=== PATIENT | female | born 1980 | race Caucasian/White ===

== ENCOUNTER 2016-04-02 18:24 | Inpatient (IN) | payer OTHER ==
--- NOTE | ~2016-04-02 | US140 ---
[facility] A Service of [facility] RADIOLOGY TEXT RESULTS PATIENT: KARLA JONES LOCATION: CEDOF : 82 UNIT #: [id number] AGE: [address]: Maximilian Momin MD SEX: F ORDER DR: [id number] [facility] [address] [place], [place] [address] [id number] I MR#: [id number] Acc #: [id number] NAME: KARLA JONES. : 1980 SEX: F STUDY DATE/TIME: 04/02/2016 19:06 UNIT: CED ROOM: [id number] STUDY DESCRIPTION: US UE Veins Unilat or Ltd Stdy Attending Physician: Maxine Valenzuela M.D. Ordering Physician: Demetra Santillan M.D. Primary Care Physician: No Primary Care Physician MEDICAL IMAGING REPORT This report is preliminary unless electronic signature is present EXAM Ultrasound venous upper extremity unilateral or limited. DATE OF EXAM 04/02/2016 HISTORY Right upper extremity numb for a week. History of IV drug abuse, fell asleep after drug abuse, and woke up with no feeling or movement in either arms. Left arm has regained movement. COMMENT Real-time ultrasonography of the right upper extremity venous system performed with 2-D serrano-scale compression imaging, color-flow Doppler imaging and waveform analysis. FINDINGS Normal flow and compressibility is seen in the right upper extremity venous system including the downstream internal jugular vein, subclavian, axillary vein, deep and superficial brachial veins, proximal and distal cephalic veins and proximal and distal basilic veins. IMPRESSION No evidence for acute appearing deep or superficial venous thrombosis, right upper extremity venous system. Dictated by... Antonia Crews M.D. THIS IS AN ELECTRONICALLY VERIFIED REPORT Antonia Crews M.D. at 04/03/2016 10:23 AM ROBIN/jclarissa [facility] A Service [facility] RADIOLOGY TEXT RESULTS PATIENT: KARLA JONES LOCATION: CED : 82 UNIT #: [id number] AGE: [address]: Maximilian Momin MD SEX: F ORDER DR: TD: 04/03/2016 00:34 JOB #: [id number] MEDICAL IMAGING REPORT COPY
--- NOTE | ~2016-04-02 | CT16 ---
[facility] A Service of [facility] & [facility] RADIOLOGY TEXT RESULTS PATIENT: KARLA JONES LOCATION: CEDOF [id number] : 82 UNIT #: [id number] AGE: [address]: Maxine Valenzuela MD SEX: F ORDER DR: [id number] [facility] [address] [facility] [place], [place] [address] [id number] I MR#: [id number] Acc #: [id number] NAME: KARLA JONES. : 1980 SEX: F STUDY DATE/TIME: 04/02/2016 21:38 UNIT: CED ROOM: [id number] STUDY DESCRIPTION: CT Angio Chest for PE Attending Physician: Maxine Valenzuela M.D. Ordering Physician: Demetra Santillan M.D. Primary Care Physician: Primary Care Physician No MEDICAL IMAGING REPORT This report is preliminary unless electronic signature is present EXAM Chest CTA, 04/02 at 2138 hours INDICATIONS Chest pain since Wednesday of this week. Pain currently 5/10. TECHNIQUE Axial images were obtained through the chest following IV contrast administration. 3-D reformats were obtained. No comparison chest CT. This CT exam was performed with one or more of the following radiation dose reduction techniques: Automatic exposure control, adjustment of mA and/or kV according to patient size, and iterative reconstruction. FINDINGS There is no pulmonary embolism or aortic dissection. No pleural or pericardial effusion. There is no adenopathy. There is some dependent atelectasis in the left lower lobe. There is some very mild ground-glass infiltrates in the right upper lobe and in the left lower lobe suggesting mild pneumonia/pneumonitis. The lungs are otherwise clear. There are old right side seventh and eighth rib fractures. There is dextroscoliosis in the lower thoracic spine. IMPRESSION 1. No pulmonary embolism or aortic dissection. 2. Mild ground-glass infiltrates in the right upper lobe and, to a lesser degree, in the left lower lobe suggesting mild pneumonia/pneumonitis. 3. Scoliosis with old right side rib fractures. Dictated by... Eugene Chaudhari Jr., M.D. [facility] A Service of [facility] & [facility] RADIOLOGY TEXT RESULTS PATIENT: KARLA JONES LOCATION: [place] [address] : 82 UNIT #: [id number] AGE: [address]: Maxine Valenzuela MD SEX: F ORDER DR: THIS IS AN ELECTRONICALLY VERIFIED REPORT Eugene Chaudhari Jr., M.D. at 04/03/2016 6:04 AM AURELIO/nilam TD: 04/03/2016 04:13 JOB #: [id number] MEDICAL IMAGING REPORT COPY
--- NOTE | ~2016-04-02 | CR91 ---
[facility] A Service [facility] RADIOLOGY TEXT RESULTS PATIENT: KARLA JONES LOCATION: [facility] : 82 UNIT #: [id number] AGE: [address]: Maximilian Momin MD SEX: F ORDER DR: [id number] [place] [id number] [facility]. [place], [place] [address] [id number] I MR#: [id number] Acc #: [id number] NAME: KARLA JONES. : 1980 SEX: F STUDY DATE/TIME: 04/02/2016 22:45 UNIT: [facility] ROOM: [facility] STUDY DESCRIPTION: CR Elbow 2 View Rt Attending Physician: Maxine Valenzuela M.D. Ordering Physician: Natalie Sotelo M.D. Primary Care Physician: Primary Care Physician No MEDICAL IMAGING REPORT This report is preliminary unless electronic signature is present EXAM Right elbow. HISTORY Pain and swelling. Cannot straighten arm since Wednesday. Had an IV infiltrate on Wednesday. COMMENT 3 views of the right elbow reviewed. Positioning is suboptimal for evaluation for fracture. There is IV at the antecubital fossa and there is a large amount of stranding in the subcutaneous fat centered at the elbow level and this is consistent with previously infiltrated IV but please evaluate for any concern now for cellulitis. No osseous abnormality is appreciated. Allowing for positioning no acute fracture or dislocation is suspected. IMPRESSION Extensive subcutaneous fat edema centered at the level of the elbow. This is consistent with infiltration of an IV as indicated in the history but please exclude clinical concern for cellulitis. No osseous abnormality appreciated. There is an IV present currently. Dictated by... Antonia Crews M.D. THIS IS AN ELECTRONICALLY VERIFIED REPORT Antonia Crews M.D. at 04/03/2016 10:25 AM ROBIN/christa TD: 04/03/2016 06:13 JOB #: [id number] MEDICAL IMAGING REPORT [facility] A Service [facility] RADIOLOGY TEXT RESULTS PATIENT: KARLA JONES LOCATION: [facility] [id number] : 82 UNIT #: [id number] AGE: [address]: Maximilian Momin MD SEX: F ORDER DR: COPY
--- NOTE | ~2016-04-02 | CT128 ---
[facility] A Service of [facility] RADIOLOGY TEXT RESULTS PATIENT: KARLA JONES LOCATION: [facility] 556-01 : 82 UNIT #: [id number] AGE: [address]: Maximilian Momin MD SEX: F ORDER DR: [id number] [place] [id number] [facility]. [place], [place] [address] [id number] I MR#: [id number] Acc #: [id number] NAME: KARLA JONES. : 1980 SEX: F STUDY DATE/TIME: 04/03/2016 10:04 UNIT: [facility] ROOM: [facility] STUDY DESCRIPTION: CT Upper Ext Rt W Cont Attending Physician: Maximilian Momin M.D. Ordering Physician: Robbin Choudhury M.D. Primary Care Physician: No Primary Care Physician MEDICAL IMAGING REPORT This report is preliminary unless electronic signature is present EXAM CT right upper extremity with contrast. HISTORY 35-year-old female with right elbow pain, swelling since 03/30/2016. Evaluate for abscess. The history of IV drug abuse. History of radial nerve palsy. TECHNIQUE Axial images were performed through the upper extremity centered about the elbow following IV contrast. Sagittal and coronal reconstructed images reviewed at a workstation. This CT exam was performed with one or more of the following radiation dose reduction techniques: automatic exposure control, adjustment of mA and/or kV according to patient size, and iterative reconstruction. FINDINGS Examination demonstrates minimal skin thickening and diffuse reticulation of the subcutaneous tissues, most prominent within the antecubital region of the elbow, but also extending into the forearm. No discernible abscess identified, though the patient does demonstrate a moderate elbow effusion which does raise the concern for possible septic arthritis. No definite osteolysis identified. If clinically warranted, further evaluation with joint aspiration and fluid analysis may be indicated. The visualized musculature unremarkable. Normal vascular enhancement without evidence of thrombosis. Visualized tendons about the elbow appear normal. The area of confluent edema within the subcutaneous tissues in the antecubital fossa measures up to 4 cm. The area of confluent edema within the subcutaneous tissues predominately extends along the flexor surface of the forearm. [facility] A Service of [facility] RADIOLOGY TEXT RESULTS PATIENT: KARLA JONES LOCATION: [place] [address] : 82 UNIT #: [id number] AGE: [address]: Maximilian Momin MD SEX: F ORDER DR: IMPRESSION 1. Mild soft tissue swelling and edema about the upper extremity centered primarily in the region of the antecubital fossa with some confluent edema within the subcutaneous space, within the antecubital fossa but no discernible abscess or drainable fluid collection within the soft tissues. Again this may reflect cellulitis. 2. Patient does demonstrate a moderate elbow effusion, which in the setting of a questionable infection does raise a concern for septic arthritis. Further evaluation with a joint aspiration and fluid analysis may be warranted. The findings were called and discussed with Dr. Robbin Calabrese. Dictated by... Jez Mendez M.D. THIS IS AN ELECTRONICALLY VERIFIED REPORT Jez Mendez M.D. at 04/05/2016 8:29 PM Noe TD: 04/03/2016 14:10 JOB #: [id number] MEDICAL IMAGING REPORT COPY
--- NOTE | ~2016-04-02 | HP ---
Unit #: [id number] #: [id number] Patient: KARLA JONES [id number] [address] [place], [place] [address] [id number] I MR#: [id number] NAME: KARLA JONES. ROOM: 49754 Age: 35 Sex: F Admission Date: 04/03/2016 : 1980 Attending Physician: Maxine Valenzuela M.D. Primary Care Physician: No Primary Care Physician HISTORY AND PHYSICAL CHIEF COMPLAINT Right arm problem since Wednesday. HISTORY OF PRESENT ILLNESS The patient is a 35-year-old female with past medical history of IV drug use and recent admission for right upper extremity paralysis. She was admitted to [facility] March 25-2016, for right upper extremity paralysis. She was seen in consultation by neurology. It was felt to be questionable positional versus toxic. She was discharged home with a plan for outpatient physical therapy and occupational therapy, which has not yet been set up. The patient states that she had an IV that infiltrated on the day of discharge. She has had persistent swelling. She states that she has actually had more feeling in the upper extremity and has been noticing pain. She thinks that it is maybe related to her being able to actually feel some of her arm. She denies any fever. She has had a cough that has been present since before her previous admission. She states that it is nonproductive. She denies any chest pain. No palpitations. No vomiting. No diarrhea. No urinary symptoms. In the emergency department, temperature was 98.2 and pulse 141. White blood cell count is 18.5. Lactic acid 1.3. Urine tox screen was positive for amphetamines and opiates. Right upper extremity Doppler was negative for DVT. CT of the chest, PE protocol, showed ground-glass infiltrates concerning for possible pneumonia. An elbow x-ray showed findings concerning for possible cellulitis. She was given vancomycin, tobramycin, and Zosyn in the emergency department. She is being admitted to [facility] for evaluation and further treatment. PAST MEDICAL HISTORY 1. Admission to [facility] March 25-2016, for right upper extremity paralysis thought to be positional versus toxic. The plan was for her to have physical therapy as an outpatient. They have not yet seen the patient. 2. History of rhabdomyolysis during that admission as well. 3. Non-ST elevation myocardial infarction. The patient was seen in consultation by cardiology. The plan was medical management. A 2D echo was checked as well. There are no results in [facility]. PAST SURGICAL HISTORY 1. Tubal ligation. 2. C section. SOCIAL HISTORY The patient is currently living with her mother. She is an IV drug user. Unit #: [id number] #: [id number] Patient: KARLA JONES She states that her last use was prior to the last admission. She denies tobacco use. She is currently on home incarceration. FAMILY HISTORY Notable for her mother being on disability. The patient is unable to tell me what medical issues she has. She is in a wheelchair. She denies a family history of diabetes. ALLERGIES No known allergies. MEDICATIONS Home medications per the discharge summary from March 30 include: 1. Neurontin 300 mg t.i.d. 2. Coreg 3.125 mg twice daily. 3. Lipitor 10 mg daily. 4. Aspirin 81 mg daily. 5. Claritin 10 mg daily. 6. Robitussin 600 mg twice daily. REVIEW OF SYSTEMS A 10-point review of systems is negative, except as indicated in the HPI. DIAGNOSTIC STUDIES CARDIOVASCULAR: EKG showed sinus tachycardia with a rate of 106 beats per minute. IMAGING: Right upper extremity Doppler is negative for DVT. CT of the chest, PE protocol, shows no PE. Ground-glass infiltrates are present. Elbow x-ray shows findings concerning for a possible cellulitis versus IV infiltration. LABORATORY: Blood cultures from March 25 were no growth after 5 days x2. Troponin is less than 0.05. INR is 1. Lactic acid 1.3. Complete blood count notable for white blood cell count of 18.5; hemoglobin and hematocrit 11.8 and 36.7, respectively; MCV of 76, and RDW 18.5. BNP is 59. Comprehensive metabolic panel is essentially normal. Total protein is 8.6. CK is 129. Magnesium is 1.8. Urine tox screen is positive for amphetamines and opiates. Urinalysis notable for trace leukocyte esterase, 5-10 white blood cells, 3+ bacteria, and a few squamous cells are present. PHYSICAL EXAMINATION VITAL SIGNS: Temperature is 97.5, pulse 110, respirations 16, blood pressure 131/96, and oxygen saturation is 98% on room air. GENERAL: The patient is a female who is awake, alert, and in no acute distress. HEENT: The head is atraumatic. Mucous membranes are moist. NECK: Supple. Trachea is midline. CARDIOVASCULAR: Regular rate and rhythm. LUNGS: Relatively clear to auscultation bilaterally with no increased work of breathing. ABDOMEN: Soft and nontender with bowel sounds present in all four quadrants. EXTREMITIES: The right upper extremity is diffusely tender to palpation. Unit #: [id number] #: [id number] Patient: KARLA JONES She does have nonpitting edema involving the right upper extremity. She has multiple track anderson as well as wrist drop. She has decreased boiler tender strength involving the right hand. Sensation is subjectively decreased involving the right upper extremity. NEUROLOGIC: The patient is awake and alert. She follows commands. PSYCH: The patient is cooperative. Mood and affect are normal. SKIN: Demonstrates the previously described abnormalities. The right elbow is somewhat warm. It is not particularly erythematous. She does have decreased range of motion secondary to pain and previous history of paralysis present on admission. ASSESSMENT The patient is a 35-year-old female with: 1. Sepsis. 2. Healthcare-associated pneumonia. The patient received vancomycin, Zosyn, and tobramycin in the emergency department. 3. Right upper extremity cellulitis versus possible septic arthritis. 4. Urinary tract infection. 5. History of right upper extremity paralysis. 6. History of non-ST elevation myocardial infarction. 7. IV drug use with last use being earlier this month. Urine tox screen is positive for amphetamines and opiates today. PLAN 1. Admit to intermediate level. 2. Normal saline at 125 mL an hour. 3. Healthy heart diet. 4. Blood cultures x2. 5. Sputum culture and sensitivity. 6. Procalcitonin level. 7. Sepsis protocol with repeat lactic acid level. 8. Vancomycin IV, tobramycin IV, and Zosyn IV pending further workup. 9. Supplemental oxygen. 10. DuoNeb p.r.n. 11. Two-dimensional echo for further evaluation of sepsis in a patient with history of IV drug use. 12. Consult orthopedics regarding possible septic arthritis. 13. Urine culture and sensitivity on urine in the lab. 14. Serial cardiac enzymes. 15. manager fashion and social work consult regarding IV drug use. 16. P.R.N. Tylenol. 17. P.R.N. Zofran. 18. SCDs for DVT prophylaxis. 19. Repeat labs in the morning. 20. Additional workup and consultants based on above. Dictated by Brock Landaverde/albino TD: 04/03/2016 05:07 JOB #: [id number] Unit #: [id number] #: [id number] Patient: KARLA JONES HISTORY AND PHYSICAL X Maxine Valenzuela MD HISTORY AND PHYSICAL
--- NOTE | ~2016-04-02 | MR41 ---
[facility] A Service of [facility] & [facility] RADIOLOGY TEXT RESULTS PATIENT: KARLA JONES LOCATION: [facility] 55- : 82 UNIT #: [id number] AGE: [address]: Ashvin Solis MD SEX: F ORDER DR: [id number] [facility] [address] [facility]. [place], [place] [address] [id number] I MR#: [id number] Acc #: [id number] NAME: KARLA JONES. : 1980 SEX: F STUDY DATE/TIME: 04/05/2016 11:44 UNIT: C5B ROOM: [facility] STUDY DESCRIPTION: MR Elbow WWo Contrast Rt Attending Physician: Maximilian Momin M.D. Ordering Physician: Solomon Lema M.D. Primary Care Physician: Primary Care Physician No MRI CENTER REPORT This report is preliminary unless electronic signature is present. EXAM MRI of the right elbow with and without contrast, 04/05/2016 HISTORY 35-year-old female with right elbow pain and swelling, unable to straighten arm since Wednesday, 6 days ago. History of IV infiltrate. Clinical concern for abscess. Recent joint aspiration was not highly suggestive of a septic joint. Apparent blood aspirated from elbow joint. COMPARISON CT right upper extremity 04/03/2016. FINDINGS Multiplanar multiecho imaging was performed of the right elbow utilizing a high field magnetic dedicated protocol. Sagittal and axial T1 weighted images were performed following IV gadolinium. The study is slightly degraded due to motion artifact but is felt to be diagnostic. Bone structure and alignment appears normal. Elbow alignment appears maintained. There is a moderate elbow effusion with enhancement of the synovium which s a normal expected finding. Given the absence of adjacent marrow edema and significant pericapsular edema, septic arthritis is considered unlikely. Minimal chondromalacia humeral capitellum. No loose body. Generalized soft tissue swelling and edema about the elbow. There is more confluent edema in the anterior elbow in the region of the antecubital fossa with signal abnormality along the medial distal muscle belly of the brachialis muscle and deep to the biceps tendon within the antecubital fossa. This enhances post contrast and may represent a focal area of myositis. This is best seen on the axial post contrast images and measures about 1.2 cm x 2.6 cm in greatest transverse dimensions and is STS. [facility] A Service of [facility] & [facility] RADIOLOGY TEXT RESULTS PATIENT: KARLA JONES LOCATION: [place] [address] : [birth year] UNIT #: [id number] AGE: [address]: Ashvin Solis MD SEX: F ORDER DR: estimated approximately 6 cm in cephalocaudal dimension. This appears rather diffuse along the medial margin and medial portion of the distal brachialis muscle and again, may represent focal myositis. No drainable fluid collection of abscess. The visualized neurovascular structure is unremarkable. IMPRESSION 1. Moderate joint effusion but no ancillary findings to support septic arthritis. This would be in keeping with the patient's findings from aspiration of the joint. 2. Generalized soft tissue swelling and edema about the elbow which shows minimal enhancement post contrast and may reflect cellulitis. 3. Prominent muscle edema and enhancement along the medial margin of the brachialis muscle within the distal upper arm extending into the antecubital fossa. This measures approximately 1.2 cm x 2.6 cm in greatest transverse dimensions and extends over at least a 6 cm length of the distal brachialis muscle. The enhancement post contrast is nonspecific but would suggest some degree of myositis. No drainable fluid collection or abscess demonstrated. Dictated by... Jez Mendez M.D. THIS IS AN ELECTRONICALLY VERIFIED REPORT Jez Mendez M.D. at 04/06/2016 5:02 PM SG/audie TD: 04/05/2016 21:20 JOB #: [id number] MRI CENTER REPORT COPY
--- NOTE | ~2016-04-02 | EKG ---
PATIENT: KARLA JONES UNIT #: [id number] Ventricular Rate: 106 BPM Atrial Rate: 106 BPM P-R Interval: 138 ms QRS Duration: 82 ms Q-T Interval: 348 ms QTC Calculation(Bezet): 462 ms P Almond: 64 degrees Calculated R Almond: 64 degrees Calculated T Almond: 57 degrees Diagnosis Line: Sinus tachycardia Diagnosis Line: Possible Left atrial enlargement Diagnosis Line: Nonspecific ST abnormality Diagnosis Line: Abnormal ECG Diagnosis Line: When compared with ECG of 26-MAR-2016 07:17, Diagnosis Line: Vent. rate has increased BY 43 BPM Diagnosis Line: Confirmed by EFRAIN SPICER MD ([id number]) on 04/03/2016 Diagnosis Line: 5:19:17 PM INTERPRETING MD: DANNIELLE MORRISON
--- NOTE | ~2016-04-02 | OR ---
Unit #: [id number] #: [id number] Patient: KARLA READ [id number] [address] [place], [place] [address] [id number] I MR#: [id number] NAME: KARLA READ ROOM: 556 Date of Procedure: 04/04/2016 Admission Date: 04/03/2016 Surgeon: Solomon Lema M.D. : 1980 Attending Physician: Maximilian Momin M.D. Primary Care Physician: Primary Care Physician No OPERATIVE REPORT PREPROCEDURE DIAGNOSIS Possible right septic elbow joint. POSTPROCEDURE DIAGNOSIS Possible right septic elbow joint. PROCEDURE PERFORMED Right elbow arthrocentesis. INDICATIONS FOR PROCEDURE Ms. Read is a 35-year-old female with history of IV drug abuse, who presents with increasing right elbow pain and swelling. Labs were elevated. She has been on antibiotics. CT scan of the right elbow revealed fluid collection within the elbow joint consistent with effusion. Due to increasing pain, it was felt aspiration was warranted. The risks, benefits, and alternatives were discussed with the patient. She wished to proceed with the aspiration. Verbal consent was obtained. DESCRIPTION OF PROCEDURE On 04/04/2016, the patient's right elbow was sterilely prepped with alcohol swab. Approximately 3 mL of lidocaine 1% without epinephrine was sterilely injected into the subcutaneous tissues over the posterolateral aspect of the elbow. Next, the site again was cleaned with alcohol and an 18-gauge needle was carefully inserted into the right elbow joint. Again, this was from a posterolateral approach. Approximately 5 mL of hematogenous appearing fluid was removed from the elbow joint. It was then placed into a sterile specimen cup. It was sent to the lab for stat Gram stain and culture, along with cell count and crystals. A Band-Aid was applied to the site. The patient tolerated this well. POSTPROCEDURE PLAN We will check the labs. She will be n.p.o. after midnight. We will order new blood work. If this shows potential infection, we will plan for I and D of the right elbow. Dictated by... Solomon Lema M.D. BD/modl Unit #: [id number] #: [id number] Patient: KARLA READ TD: 04/04/2016 12:03 JOB #: [id number] OPERATIVE REPORT X X PROCEDURE OPERATIVE NOTE
--- NOTE | ~2016-04-02 | CO ---
Unit #: [id number] #: [id number] Patient: KARLA READ [id number] [facility]. [place], [place] [address] [id number] MR#: [id number] NAME: KARLA READ. ROOM: 55 Age: 35 Sex: F Admission Date: 04/03/2016 : 1980 Attending Physician: Maximilian Momin M.D. Consultation Date: 04/03/2016 CONSULTATION REPORT CHIEF COMPLAINT Right forearm pain and swelling with 1-week history of increased pain. HISTORY OF PRESENT ILLNESS Ms. Read is a 35-year-old female with a history of IV drug abuse with recent admission to [facility] with right upper extremity paralysis. She was admitted during 03/25/2016 to 03/30/2016. She was initially seen at that time by Neurology. She had an IV that infiltrated on a day or two prior to discharge and had persistent swelling. She was discharged home. She began having increasing amount of pain in the last day or so and comes back to [facility] Emergency Room for further workup and treatment. She states that the swelling really has not significantly gotten worse, but is actually having more pain. She thinks it may actually be the fact that she has some sensation return back to the arm although she is unsure. Orthopedics was consulted for possible abscess versus septic elbow. 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 PAST SURGICAL HISTORY Includes a tubal ligation, . SOCIAL HISTORY She is currently with her mother. She is IV drug abuser. She states last use was prior to her last admission. Denies tobacco use. She is currently on home incarceration. Her significant other is in the room with her in the emergency room. FAMILY HISTORY Mother is on disability. ALLERGIES No known drug allergies. HOME MEDICATIONS Reviewed and include Neurontin, Coreg, Lipitor, aspirin, Claritin, Robitussin. REVIEW OF SYSTEMS Positive for as dictated above in HPI, other 10 point system is negative. Unit #: [id number] #: [id number] Patient: KARLA READ PHYSICAL EXAMINATION VITAL SIGNS: She is afebrile. Vital signs are stable. HEENT: Normocephalic, atraumatic. Extraocular muscles intact. NECK: Trachea is midline. CHEST: Demonstrates a normal chest wall movement. No audible expiratory wheeze. HEART: Regular rate and rhythm. ABDOMEN: Thin, soft, nontender. MUSCULOSKELETAL: Examination of the right upper extremity demonstrates swelling in the lower brachium and upper forearm region. There is no erythema. No early signs of infection. She is tender to palpation. Range of motion of the elbow is 0 to 110 degrees with pain at end ranges. She has full supination and full pronation. Ligaments are stable at the elbow. She has multiple pin track anderson also noted on the back of the right hand. Denies any visible pin track anderson around the elbow region. NEUROLOGIC: Demonstrates radial nerve palsy with absent EPL and finger extensors. Decreased sensation of the dorsum of the right hand. DIAGNOSTIC STUDIES IMAGING STUDIES: Review of x-rays of the right elbow, AP and lateral views demonstrate no acute fracture or dislocation. She has soft tissue swelling of the right brachium and upper forearm. IMPRESSION 1. Right brachium and forearm swelling with history of IV filtration. 2. History of IV drug abuse. 3. Radial nerve palsy. PLAN Recommend going to get a CT scan, especially with her history of IV drug abuse and just to rule out potential abscess. She did just have contrast with the CT scan, so the noncontrast study to see if there appears to be any areas of potential fluid collection. Based on her exam, I do not see any evidence of septic joint. I recommend placing an Gray wrap on the extremity from her hand up to her forearm. I would remove the IV from the right arm unless absolutely necessary. If CT of her arm is negative for significant fluid collection, then she can be discharged home from my standpoint. We will also order a wrist cock-up splint for her radial nerve palsy. We will also consult physical therapy to see the patient. I will otherwise see her back p.r.n. Dictated by... Robbin Choudhury M.D. PHILIP/irma TD: 04/04/2016 01:03 JOB #: [id number] Unit #: [id number] #: [id number] Patient: KARLA READ CONSULTATION REPORT X Robbin Choudhury MD CONSULTATION REPORT
--- NOTE | ~2016-04-02 | DS ---
Unit #: [id number] #: [id number] Patient: KARLA JONES [id number] [place], [place] [address] [id number] MR#: [id number] NAME: KARLA JONES. ROOM: 556 Age: 35 Sex: F Admission Date: 04/03/2016 : 1980 Discharge Date: 04/07/2016 Attending Physician: Ashvin Solis M.D. Primary Care Physician: No Primary Care Physician DISCHARGE SUMMARY ADMITTING DIAGNOSIS Right arm pain. FURTHER DIAGNOSES 1. Right arm neurapraxia. 2. Cellulitis. CONSULTANTS 1. Dr. Prakash. 2. Dr. Lema. PROCEDURES DONE Aspiration of the right elbow. Gram stain and cultures were negative. HISTORY OF PRESENTING ILLNESS The patient is a 35-year-old IV drug abuser, presented with right upper extremity neurapraxia on March 25. She was discharged home and instructed o follow with outpatient physical therapy. Apparently she could not go to the outpatient physical therapy. She presented back and she was complaining of more swelling in her hand and elbow. Orthopedic services were consulted and patient had aspiration of the joint. The fluid came back negative in cultures. The gram stain was negative. She also had an MRI of the right elbow which showed myositis. ID was consulted. They recommended to use clindamycin for three more days and us some analgesics at this point and discharge her home. I spoke with patient and she is agreeable for the plan. I spoke with the immigration case worker and she is arranging for outpatient physical therapy appointment. I also arranged for a followup appointment in the transition care clinic on April 30, 2016, at 9:15 a.m. and we will give her the information for the transition care clinic. Counseled her on multiple occasions to quit doing illicit drugs. She is doing clinically better. She will be discharged home. On the day of the discharge, her physical examination: Temperature 98.2, pulse rate 83, respiratory rate 20, blood pressure 135/78. The patient is alert and oriented x3, lying in the bed, in no acute distress. HEENT - normocephalic, atraumatic. No icterus. PERRLA. Extraocular movements intact. NECK is supple. No JVD. HEART - S1, S2. Regular rate and rhythm. CHEST - bilateral equal air entry, clear to auscultation. ABDOMEN - soft, nontender. EXTREMITIES - no edema. Normal pulses. Right elbow - slight tenderness which is decreased from the initial hospital admission. DISCHARGE MEDICATIONS Unit #: [id number] #: [id number] Patient: KARLA JONES Include: 1. Naproxen 500 mg p.o. b.i.d. for ten days. 2. Clindamycin 450 mg p.o. three times a day for four more days. 3. Coreg 3.125 mg p.o. twice a day. 4. Lipitor 10 mg at bedtime. 5. Aspirin 81 mg daily. She was instructed to follow with her primary care and transition clinic. Total time spent in her care - 35 minutes. Dictated by... Brock Washington TD: 04/10/2016 06:09 JOB #: [id number] DISCHARGE SUMMARY X X DISCHARGE SUMMARY
--- NOTE | ~2016-04-02 | CO ---
Unit #: [id number] #: [id number] Patient: KARLA JONES [id number] [place], [place] [address] [id number] MR#: [id number] NAME: KARLA JONES. ROOM: 556 Age: 35 Sex: F Admission Date: 04/03/2016 : 1980 Attending Physician: Ashvin Solis M.D. Primary Care Physician: Primary Care Physician No Requesting Physician: Kanu Vazquez M.D. Consultation Date: 04/07/2016 CONSULTATION REPORT REASON FOR CONSULTATION Possible infection of the elbow. HISTORY OF PRESENT ILLNESS This is a 35-year-old white female who admits to IV drug use was recently hospitalized for right upper extremity weakness which is slowly improving. It was thought to be due to entrapment neuropathy since imaging studies were negative. She came back with some swelling of the right elbow. She states that she had IV infiltrated in that site. There is some swelling and discomfort. MRI was not consistent with septic arthritis. There was some effusion, however, which was tapped. It showed less than 2000 wbc, culture remained negative, crystals were negative. The patient has been on vancomycin and Zosyn and appears to be improving. She is able to move her elbow without any problems and there is minimum evidence of soft tissue thickening on imaging studies. She denies any active IV drug use at this time. There is no fever, chills, hypotension, or any positive cultures. PAST MEDICAL HISTORY 1. Right upper extremity paralysis due to possible entrapment or injury. 2. History of IV drug use. 3. Previous history of rhabdomyolysis. 4. Tubal ligation. 5. . CURRENT MEDICATIONS 1. Vancomycin. 2. Zosyn. 3. Gabapentin. 4. Atorvastatin. 5. Potassium supplements. ALLERGIES None. HOME MEDICATIONS Noted. SOCIAL HISTORY She is living with her mother. She uses drugs but currently denies any active IV drug use. No listed tobacco. She is currently in home incarceration. REVIEW OF SYSTEMS Unit #: [id number] #: [id number] Patient: KARLA JONES Right elbow discomfort, some pain and redness, all of which is improving. There is no cough, chest pain, abdominal pain, headache, mental status changes. PHYSICAL EXAMINATION VITAL SIGNS: Temperature 98.2 no fever was documented during this admission. Heart rate 83, respirations 20, blood pressure 135/78. GENERAL: Young, white female who is awake and alert and in no acute distress. She is fully conscious and oriented to time, place, and person. HEENT: Unremarkable. NECK: Supple. No JVD or edema. LUNGS: Clear. HEART: Normal. ABDOMEN: Soft, nontender. No organomegaly or ascites. Bowel sounds are normal. RIGHT UPPER EXTREMITY: Weakness which is lower motor neuron type. There is minimum swelling of the right olecranon area without any induration or erythema. Range of motion is full without any pain. Some cubital fossa fullness is also noted. No evidence of cellulitis or clinical abscess. DIAGNOSTIC STUDIES LABORATORY: All cultures are negative. BMP is unremarkable. White count is 7.1, hemoglobin 9.2, platelets 293. Procalcitonin 0.05. CRP is less than 0.5. Crystals in the joint fluid were negative. IMAGING: MRI of the elbow shows moderate joint effusion but nothing to suggest septic arthritis. Soft tissue swelling around the elbow. Minimum muscle edema and enhancement. IMPRESSION I strongly believe this is a noninfectious process. She may have had either a result of IV infiltration or a noninfectious bursitis. There is nothing to suggest abscess or septic arthritis. She has been on four days of broad-spectrum antimicrobial therapy which may have masked the signs of superficial infection. RECOMMENDATIONS Will discuss with Dr. Solis. The patient is being discharged today. I will recommend another 4 days of oral clindamycin and nonsteroidal anti-inflammatory therapy like ibuprofen or naproxen for a few days. The patient does need followup with Orthopedic Surgery in the next few days. These were discussed with the patient in detail. Dictated by... Brock Palacio/maya TD: 04/07/2016 18:43 JOB #: [id number] Unit #: [id number] #: [id number] Patient: KARLA JONES CONSULTATION REPORT X Ty Prakash MD CONSULTATION REPORT
[~2016-04-02 18:24] MED LIST: ASPIRIN81 M2 PO; ATORVASTATIN CA10 MG PO; COREG3.125 MG PO; NEURONTIN100 MG PO; NO MEDICATIONS
[2016-04-02 18:54] LABS: BASOPHIL% 0.2 % (0-2.5); EOSINOPHIL% 0.1 % (0.0-7.0); HEMATOCRIT 36.7 % (35.0-45.0); HEMOGLOBIN 11.8 gm/dL (12.0-16.0); LYMPHOCYTE# 2.3 X10e3 (1.0-3.5); LYMPHOCYTE% 12.7 % (17.0-45.0); MEAN CORPUSCULAR HEMOGLOBIN 24.4 PG (28-34); MEAN CORPUSCULAR HGB CONC 32.2 g/dL (30-36); MEAN PLATELET VOLUME 7.2 FL (6.5-11.5); MONOCYTE# 1.3 X10e3 (0-1.0); MONOCYTE% 7.2 % (3.0-12.0); NEUTROPHIL# 14.8 X10e3 (1.5-7.1); NEUTROPHIL% 79.8 % (40-75); PLATELET COUNT 417 X10e3 (140-420); RED BLOOD COUNT 4.83 X10e (3.90-5.30); RED CELL DISTRIBUTION WIDTH 18.5 % (11.0-15.5); WHITE BLOOD COUNT 18.5 X10e3 (4.0-10.5)
[2016-04-02 18:57] LABS: DIFF IND YES
[2016-04-02 19:05] LABS: PARTIAL THROMBOPLASTIN TIME 26.8 SECONDS (23.5-31.3); PROTHROMBIN TIME (PATIENT) 10.3 SECONDS (9.6-11.5)
[2016-04-02 19:05] LABS: POC - CKMB <1.0 ng/mL (0.0-7.9); POC - TROPONIN <0.05 ng/mL (<=0.05)
[2016-04-02 19:19] LABS: ANISOCYTOSIS SL; HYPOCHROMIA SL; MICROCYTOSIS SL; PLATELET ESTIMATE NORMAL (NORMAL); STOMATOCYTE PRESENT
[2016-04-02 19:23] LABS: ALBUMIN SERUM 4.1 g/dL (3.5-5.0); ALKALINE PHOSPHATASE 83 U/L (32-92); ALT (SGPT) 26 U/L (10-40); AST (SGOT) 20 U/L (10-42); BILIRUBIN, DIRECT 0.1 mg/dL (0.0-0.2); BILIRUBIN,INDIRECT 0.4 mg/dL (0.0-0.9); BILIRUBIN,TOTAL 0.5 mg/dL (0.2-2.0); BLOOD UREA NITROGEN 15 mg/dL (9-23); BUN/CREATININE RATIO 21.42; CALCIUM SERUM 8.9 mg/dL (8.4-10.2); CARBON DIOXIDE 27 mmol/L (22-31); CHLORIDE 102 mmol/L (100-111); CPK (CREATINE PHOSPHOKINASE) 129 IU/L (26-140); CREATININE SERUM 0.7 mg/dL (0.6-1.4); GLOM FILT RATE Estimated ABOVE60 mL/min (>60); GLUCOSE FASTING 95 mg/dL (70-110); MAGNESIUM 1.8 mg/dL (1.6-3.0); POTASSIUM 3.9 mmol/L (3.5-5.1); PROTEIN TOTAL SERUM 8.6 g/dL (6.0-8.3); SODIUM 137 mmol/L (135-145)
[2016-04-02 20:59] LABS: URINE SOURCE CLEAN CATCH
[2016-04-02 21:25] LABS: AMPHETAMINE POS (NEG); BARBITURATES NEG (NEG); BENZODIAZEPINES NEG (NEG); COCAINE NEG (NEG); MARIJUANA NEG (NEG); OPIATES POS (NEG); TRICYCLIC ANTIDEPRESSANTS NEG (NEG); U METHADONE NEG (NEG)
[2016-04-02 21:27] LABS: URINE APPEARANCE CLEAR; URINE COLOR YELLOW
[2016-04-02 21:28] LABS: URBCS1 AUWI 0-2 /[HPF] (0-2); URINE BILIRUBIN NEG (NEG); URINE BLOOD NEG (NEG); URINE GLUCOSE NORM (NEG); URINE KETONE TRACE (NEG); URINE LEUKOCYTE ESTERASE TRACE (NEG); URINE NITRATE NEG (NEG); URINE PROTEIN NEG (NEG); URINE UROBILINOGEN 0.2 MG/DL (NEG)
[2016-04-02 21:29] LABS: CULTURE INDICATED? YES; U HYALINE CASTS AUWI 0-2 /[LPF]; URINE BACTERIA AUWI 3+ (NEGATIVE); URINE MUCUS PRESENT; URINE SQUAMOUS EPITHELIAL CELL FEW /[HPF]
[2016-04-02 22:30] LABS: POC - CKMB <1.0 ng/mL (0.0-7.9); POC - TROPONIN <0.05 ng/mL (<=0.05)
[2016-04-03 06:34] LABS: BASOPHIL% 0.3 % (0-2.5); EOSINOPHIL# 0.1 X10e3 (0-0.7); EOSINOPHIL% 1.2 % (0.0-7.0); HEMATOCRIT 32.5 % (35.0-45.0); HEMOGLOBIN 10.5 gm/dL (12.0-16.0); LYMPHOCYTE# 2.2 X10e3 (1.0-3.5); LYMPHOCYTE% 18.9 % (17.0-45.0); MEAN CELL VOLUME 76.6 FL (83-96); MEAN CORPUSCULAR HEMOGLOBIN 24.7 PG (28-34); MEAN CORPUSCULAR HGB CONC 32.2 g/dL (30-36); MEAN PLATELET VOLUME 7.2 FL (6.5-11.5); MONOCYTE% 8.4 % (3.0-12.0); NEUTROPHIL# 8.3 X10e3 (1.5-7.1); NEUTROPHIL% 71.2 % (40-75); PLATELET COUNT 289 X10e3 (140-420); RED BLOOD COUNT 4.24 X10e (3.90-5.30); RED CELL DISTRIBUTION WIDTH 18.5 % (11.0-15.5); WHITE BLOOD COUNT 11.6 X10e3 (4.0-10.5)
[2016-04-03 06:41] LABS: DIFF IND NO
[2016-04-03 06:54] LABS: POC - TROPONIN <0.05 ng/mL (<=0.05)
[2016-04-03 07:12] LABS: ALBUMIN SERUM 3.2 g/dL (3.5-5.0); ALKALINE PHOSPHATASE 69 U/L (32-92); ALT (SGPT) 20 U/L (10-40); AST (SGOT) 15 U/L (10-42); BILIRUBIN,TOTAL 0.5 mg/dL (0.2-2.0); BLOOD UREA NITROGEN 9 mg/dL (9-23); CALCIUM SERUM 8.7 mg/dL (8.4-10.2); CARBON DIOXIDE 28 mmol/L (22-31); CHLORIDE 102 mmol/L (100-111); CREATININE SERUM 0.6 mg/dL (0.6-1.4); GLOM FILT RATE Estimated ABOVE60 mL/min (>60); GLUCOSE FASTING 99 mg/dL (70-110); POTASSIUM 3.3 mmol/L (3.5-5.1); SODIUM 140 mmol/L (135-145)
[2016-04-03 08:05] LABS: %MB 3.6 % (0.0-4.0); MB 3.6 ng/ml
[2016-04-03 12:06] LABS: %MB 3.3 % (0.0-4.0); MB 3.3 ng/ml
[2016-04-04 11:02] LABS: BF CRYSTAL EXAM NO CRYSTALS SEEN; BF TOTAL NUCLEATED CELL COUNT 1675 CMM (0-100); BODY FLUID APPEARANCE BLOODY; BODY FLUID SOURCE SYNOVIAL
[2016-04-04 11:03] LABS: BODY FLUID RBC 5286632 CMM
[2016-04-04 11:40] LABS: HEMATOCRIT 29.9 % (35.0-45.0); HEMOGLOBIN 9.6 gm/dL (12.0-16.0); MEAN CELL VOLUME 76.1 FL (83-96); MEAN CORPUSCULAR HEMOGLOBIN 24.4 PG (28-34); MEAN PLATELET VOLUME 6.9 FL (6.5-11.5); RED BLOOD COUNT 3.92 X10e (3.90-5.30); RED CELL DISTRIBUTION WIDTH 18.7 % (11.0-15.5)
[2016-04-04 11:45] LABS: WHITE BLOOD COUNT 5.5 X10e3 (4.0-10.5)
[2016-04-04 12:07] LABS: BLOOD UREA NITROGEN 6 mg/dL (9-23); CALCIUM SERUM 8.3 mg/dL (8.4-10.2); CARBON DIOXIDE 29 mmol/L (22-31); CHLORIDE 106 mmol/L (100-111); CREATININE SERUM 0.5 mg/dL (0.6-1.4); GLOM FILT RATE Estimated ABOVE60 mL/min (>60); GLUCOSE FASTING 111 mg/dL (70-110); POTASSIUM 3.1 mmol/L (3.5-5.1); SODIUM 141 mmol/L (135-145)
[2016-04-06 00:01] LABS: MAGNESIUM 1.6 mg/dL (1.6-3.0); POTASSIUM 3.5 mmol/L (3.5-5.1)
[2016-04-06 07:49] LABS: HEMATOCRIT 26.9 % (35.0-45.0); HEMOGLOBIN 8.9 gm/dL (12.0-16.0); MEAN CELL VOLUME 76.1 FL (83-96); MEAN CORPUSCULAR HEMOGLOBIN 25.2 PG (28-34); MEAN CORPUSCULAR HGB CONC 33.1 g/dL (30-36); MEAN PLATELET VOLUME 7.2 FL (6.5-11.5); RED BLOOD COUNT 3.54 X10e (3.90-5.30); RED CELL DISTRIBUTION WIDTH 18.1 % (11.0-15.5); WHITE BLOOD COUNT 7.4 X10e3 (4.0-10.5)
[2016-04-06 08:33] LABS: BLOOD UREA NITROGEN 6 mg/dL (9-23); CALCIUM SERUM 8.1 mg/dL (8.4-10.2); CARBON DIOXIDE 28 mmol/L (22-31); CHLORIDE 109 mmol/L (100-111); CREATININE SERUM 0.5 mg/dL (0.6-1.4); GLOM FILT RATE Estimated ABOVE60 mL/min (>60); GLUCOSE FASTING 84 mg/dL (70-110); POTASSIUM 3.7 mmol/L (3.5-5.1); SODIUM 144 mmol/L (135-145)
[2016-04-07 07:20] LABS: HEMATOCRIT 28.6 % (35.0-45.0); HEMOGLOBIN 9.2 gm/dL (12.0-16.0); MEAN CELL VOLUME 76.2 FL (83-96); MEAN CORPUSCULAR HEMOGLOBIN 24.5 PG (28-34); MEAN CORPUSCULAR HGB CONC 32.2 g/dL (30-36); MEAN PLATELET VOLUME 7.3 FL (6.5-11.5); RED BLOOD COUNT 3.76 X10e (3.90-5.30); RED CELL DISTRIBUTION WIDTH 18.1 % (11.0-15.5); WHITE BLOOD COUNT 7.1 X10e3 (4.0-10.5)
[2016-04-07 07:51] LABS: BLOOD UREA NITROGEN 6 mg/dL (9-23); CALCIUM SERUM 7.7 mg/dL (8.4-10.2); CARBON DIOXIDE 27 mmol/L (22-31); CHLORIDE 108 mmol/L (100-111); CREATININE SERUM 0.5 mg/dL (0.6-1.4); GLOM FILT RATE Estimated ABOVE60 mL/min (>60); GLUCOSE FASTING 90 mg/dL (70-110); POTASSIUM 3.3 mmol/L (3.5-5.1); SODIUM 139 mmol/L (135-145)
[2016-04-07] MEDS ORDERED: NAPROSYN500 MG PO (13:06)
[2016-04-07] MEDS ORDERED: CLEOCIN PO (13:07)
[2016-04-10 08:35] LABS: HEP C AB (HEPPAN) Reactive (Nonreactive)
== END 2016-04-07 18:11 | disposition home or self-care (01) | DRG 872 ==
LOC: CED 18:24 → CEDOF 04-03 00:13 → C5B 04-03 10:46
PROVIDERS: Emergency Medicine; Family Medicine; Internal Medicine; Orthopaedic Surgery; Student in an Organized Health Care Education/Training Program
PROC: B32TYZZ Computerized Tomography (CT Scan) of Left Pulmonary Artery using Other Contrast (ICD-10-PCS; 2016-04-03)
PROC: B32SYZZ Computerized Tomography (CT Scan) of Right Pulmonary Artery using Other Contrast (ICD-10-PCS; 2016-04-03)
PROC: 0R9L3ZZ Drainage of Right Elbow Joint, Percutaneous Approach (ICD-10-PCS; principal; 2016-04-04)
DX: A41.9 Sepsis, unspecified organism (principal); N39.0 Urinary tract infection, site not specified; L03.113 Cellulitis of right upper limb; S54.21XA Injury of radial nerve at forearm level, right arm, initial encounter; I25.2 Old myocardial infarction; Z79.82 Long term (current) use of aspirin; F11.10 Opioid abuse, uncomplicated; E87.6 Hypokalemia; Z71.51 Drug abuse counseling and surveillance of drug abuser; B19.20 Unspecified viral hepatitis C without hepatic coma
CPT/HCPCS: 36415; 71275; 73070; 73201; 73223; 80048; 80053; 80076; 80202; 80307; 81003; 82308; 82550; 82553; 83605; 83735; 83880; 84132; 84484; 84703; 85025; 85027; 85610; 85652; 85730; 86140; 86803; 87040; 87070; 87086; 87205; 87522; 87902; 89051; 89060; 93005; 93971; 94640; 94760; 96360; 97163; 99285; A9577; G8978-GP; G8979-GP; G8980-GP; J2543; J3260; J3370; J3475; Q9967

== ENCOUNTER 2016-05-02 13:17 | Emergency (ER) | payer OTHER ==
[~2016-05-02 13:17] MED LIST changes: +CLEOCIN PO; +NAPROSYN500 MG PO
== END 2016-05-02 16:00 | disposition expired ==
LOC: CED 13:17
CPT/HCPCS: 36556; 82947; 99291; J0171; J0461; J1265